=== PATIENT | male | born 1965 | race Caucasian/White ===

== ENCOUNTER 2023-08-31 07:41 | Outpatient (CLI) | payer OTHER, SELFPAY ==
[2023-08-31 18:56] LABS: Hematocrit 48.4 % (42.0-52.0); Hemoglobin 15.3 g/dL (14.0-18.0); Mean Corpuscular HGB Conc 31.6 g/dl (32-36); Mean Corpuscular Hemoglobin 27.2 pg (26-34); Mean Corpuscular Volume 86.1 fl (80-100); Mean Platelet Volume 12.7 fl (7.4-10.4); Platelet Count Result 168 k/mm3 (150-375); Red Blood Count 5.62 M/mm3 (4.6-6.20); Red Cell Distribution Width 13.2 % (11.5-14.5); White Blood Count 6.5 K/mm3 (4.5-10.0)
[2023-08-31 19:25] LABS: Vitamin D 25 Hydroxy 34.3 ng/mL
[2023-08-31 20:06] LABS: Alanine Aminotransferase 18 U/L (6-50); Albumin Level 4.4 g/dL (3.5-5.1); Alkaline Phosphatase 71 U/L (38-126); Anion Gap 7 mmol/L (4-12); Aspartate Amino Transferase 40 U/L (17-59); Bilirubin,Total 0.7 mg/dL (0.2-1.3); Blood Urea Nitrogen 14 mg/dL (9-20); Carbon Dioxide 27 mmol/L (22-30); Chloride 107 mmol/L (98-107); Cholesterol 210 mg/dL (0-200); Estimated Glomerular Filt Rate 57; Glucose 97 mg/dL (65-110); HDL Direct 48 mg/dL; Potassium 4.4 mmol/L (3.4-5.0); Sodium 141 mmol/L (137-145); Triglycerides 124 mg/dL (<150)
[2023-08-31 20:20] LABS: LDL Cholesterol Direct 134 mg/dL
[2023-08-31 20:36] LABS: Prostate Specific Antigen 1.4 ng/mL (< OR = 4.0)
== END 2023-08-31 07:42 | disposition home or self-care (01) ==
PROVIDERS: PCP Nurse Practitioner Adult Health; Visit Provider Nurse Practitioner Adult Health
DX: Z13.9 Encounter for screening, unspecified (principal); Z12.5 Encounter for screening for malignant neoplasm of prostate; R79.89 Other specified abnormal findings of blood chemistry; E53.8 Deficiency of other specified B group vitamins
CPT/HCPCS: 36415; 80053; 80061; 82306; 82607; 84153; 84443; 85027; G0103

== ENCOUNTER 2024-08-29 09:22 | Outpatient (CLI) | payer OTHER, SELFPAY ==
[2024-08-29 20:17] LABS: Hematocrit 47.8 % (42.0-52.0); Hemoglobin 15.1 g/dL (14.0-18.0); Mean Corpuscular HGB Conc 31.6 g/dl (32-36); Mean Corpuscular Hemoglobin 27.5 pg (26-34); Mean Corpuscular Volume 87.1 fl (80-100); Mean Platelet Volume 12.3 fl (7.4-10.4); Platelet Count Result 184 k/mm3 (150-375); Red Blood Count 5.49 M/mm3 (4.6-6.20); Red Cell Distribution Width 13.4 % (11.5-14.5); White Blood Count 7.3 K/mm3 (4.5-10.0)
[2024-08-29 20:26] LABS: Alanine Aminotransferase 22 U/L (6-50); Albumin Level 4.2 g/dL (3.5-5.1); Alkaline Phosphatase 64 U/L (38-126); Anion Gap 8 mmol/L (4-12); Aspartate Amino Transferase 55 U/L (17-59); Bilirubin,Total 0.6 mg/dL (0.2-1.3); Blood Urea Nitrogen 15 mg/dL (9-20); Calcium 9.3 mg/dL (8.4-10.2); Carbon Dioxide 24 mmol/L (22-30); Chloride 107 mmol/L (98-107); Cholesterol 225 mg/dL (0-200); Estimated Glomerular Filt Rate 58; Glucose 101 mg/dL (65-110); HDL Direct 45 mg/dL; Potassium 4.3 mmol/L (3.4-5.0); Sodium 139 mmol/L (137-145); Total Protein 7.2 g/dL (6.3-8.2); Triglycerides 99 mg/dL (<150)
[2024-08-29 20:39] LABS: LDL Cholesterol Direct 134 mg/dL
[2024-08-29 20:57] LABS: Prostate Specific Antigen 1.3 ng/mL (< OR = 4.0)
[2024-08-29 21:01] LABS: Vitamin D 25 Hydroxy 30.7 ng/mL
== END 2024-08-29 09:23 | disposition home or self-care (01) ==
LOC: ANHBWCLAB 09:24
PROVIDERS: PCP Nurse Practitioner Adult Health; Visit Provider Nurse Practitioner Adult Health
DX: Z00.00 Encounter for general adult medical examination without abnormal findings (principal); E53.8 Deficiency of other specified B group vitamins; Z12.5 Encounter for screening for malignant neoplasm of prostate; R79.89 Other specified abnormal findings of blood chemistry
CPT/HCPCS: 36415; 80053; 80061; 82306; 82607; 84153; 84443; 85027; G0103

== ENCOUNTER 2024-09-19 02:28 | Day surgery (SDC) | payer OTHER, SELFPAY ==
[2024-08-30 13:14] VITALS: BMI 27.8
--- OUTSIDE RECORDS SUMMARY | 2024-09-19 02:31 | XMS_ITS | Clinical Summary ---
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 Surgical History Surgery Date Site/Laterality Comments WISDOM TOOTH EXTRACTION 03/09/1986 - 03/08/1987 Medical History Medical History Date Comments Known health problems: none Family History Medical History Relation Name Comments Arthritis Neg Hx Cancer Neg Hx Stroke Neg Hx Social History Tobacco Use Types Packs/Day Years Used Date Smoking Tobacco: Never Smokeless Tobacco: Never Personal Safety Answer Date Recorded Getting School Help Needed Not on file 05/22 Sex and Gender Information Value Date Recorded Sex Assigned at Not on file Legal 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 Gender Identity Not on file Sexual Orientation Not on file Obstetrics History Last Filed Vital Signs Vital Sign Reading Time Taken Comments Blood Pressure 131/88 02/17/2018 7:25 AM VOICE INSTRUCTOR Pulse 70 02/17/2018 7:25 AM VOICE INSTRUCTOR Temperature - - Respiratory Rate - - Oxygen Saturation - - Inhaled Oxygen Concentration - - Weight 94.3 kg (208 lb) 02/17/2018 7:25 AM VOICE INSTRUCTOR Height 182.9 cm (6') 02/17/2018 7:25 AM VOICE INSTRUCTOR Body Mass Index 28.21 02/17/2018 7:25 AM VOICE INSTRUCTOR Plan of Treatment Not on file Insurance [facility] [employer]AK[employer] [id number] [facility] CHOICE PLUS [facility] HMO/PPO Address: [place] [address] [facility] [employer] [id number] Care Teams Plastics And Composites Inspector Relationship Specialty Start Date End Date No, Physician PCP - General 02/12/18
--- OUTSIDE RECORDS SUMMARY | 2024-09-19 02:31 | XMS_ITS | Clinical Summary ---
Author Organization [facility] Address [address] [facility] [place] [address] Phone Care Team Providers Care Clinical Staff Pharmacist Name Role Phone Provider, None Primary Care Provider Julito Hadley DPM Unavailable [phone] Allergies Active Allergy Reactions Criticality Noted Date Comments Other-Environmental Allergen (Not Found In Search) Unknown 10/17/2022 Downy dryer sheets Medications No known medications Active Problems Problem Noted Date Diagnosed Date Contusion of left foot 07/17/2015 Pain in left foot 07/17/2015 Neuritis of foot 07/17/2015 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/17/2015 Social History Tobacco Use Types Packs/Day Years Used Date Smoking Tobacco: Never Smokeless Tobacco: Never Tobacco Cessation:Counseling Given: Not Answered Alcohol Use Standard Drinks/Week Comments Yes 1 (1 standard drink = 0.6 oz pur e alcohol) socially Sex and Gender Information Value Date Recorded Sex Assigned at Not on file Legal Sex Male 12:40 AM CDT Gender Identity Not on file Sexual Orientation Not on file Last Filed Vital Signs Vital Sign Reading Time Taken Comments Blood Pressure 108/74 11/03/2022 11:15 AM CDT Pulse 84 11/03/2022 11:15 AM CDT Temperature 36.5 C (97.7 F) 11/03/2022 11:15 AM CDT Respiratory Rate 18 11/03/2022 11:15 AM CDT Oxygen Saturation 98% 11/03/2022 11:15 AM CDT Inhaled Oxygen Concentration - - Weight 86.2 kg (190 lb) 11/03/2022 11:15 AM CDT Height 182.9 cm (6') 07/31/2015 2:45 PM CDT Body Mass Index 25.77 07/31/2015 2:45 PM CDT Plan of Treatment Health Maintenance Due Date Last Done Comments Hepatitis C Virus (HCV) Screening 1965 TdaP Immunization 1965 Hepatitis B Immunization (1 of 3 - 19+ 3-dose series) 1986 Cologuard 2012 Colonoscopy 2012 Colorectal Cancer Screening 2012 Immunochemical Fecal Occult Blood 2012 Pneumococcal Immunization (5 0+ years) (1 of 1 - PCV) 2017 Zoster Immunization (1 of 2) 2017 PSA Discussion 2022 SARS-COV-2 Immunization (3 - 2023- season) 2023 12/24/2020, 12/03/2020 Influenza Immunization (#1) 2024 Respiratory Syncytial Virus (RSV) Immunization (Adult) (1 - 1-dose 75+ series) 2042 Human Papillomavirus (HPV) Immunization Aged Out No longer eligible b ased on patient's age to complete this topic Meningococcal Immunization (ACWY) Aged Out No longer eligible b ased on patient's age to complete this topic Rotavirus Immunization Aged Out No lo nger eligible based on patient's age to complete this topic Insurance [facility] Care Teams Clinical Staff Pharmacist Relationship Specialty Start Date End Date Provider, None [place] PCP - General 07/17/15 Julito Burrell DPM [place] Podiatry 07/17/15
--- OUTSIDE RECORDS SUMMARY | 2024-09-19 02:31 | XMS_ITS | Referral Summary ---
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 Social History Tobacco Use Types Packs/Day Years Used Date Smoking Tobacco: Never Smokeless Tobacco: Never Personal Safety Answer Date Recorded Getting School Help Needed Not on file 05/22 Sex and Gender Information Value Date Recorded Sex Assigned at Not on file Legal 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 Gender Identity Not on file Sexual Orientation Not on file Last Filed Vital Signs Vital Sign Reading Time Taken Comments Blood Pressure 131/88 02/17/2018 7:25 AM MANAGER EMPLOYMENT Pulse 70 02/17/2018 7:25 AM MANAGER EMPLOYMENT Temperature - - Respiratory Rate - - Oxygen Saturation - - Inhaled Oxygen Concentration - - Weight 94.3 kg (208 lb) 02/17/2018 7:25 AM MANAGER EMPLOYMENT Height 182.9 cm (6') 02/17/2018 7:25 AM MANAGER EMPLOYMENT Body Mass Index 28.21 02/17/2018 7:25 AM MANAGER EMPLOYMENT Plan of [place] [id number] [facility] CHOICE PLUS Care Teams Combination Presser Relationship Specialty Start Date End Date No, Physician PCP - General 02/12/18
[2024-09-19 08:49] VITALS: BP 137/82; PULSE 93; RESP 20; TEMP 36.8; O2SAT 100
--- NOTE | 2024-09-19 09:00 | P.PNAN_ITS ---
Anes - Initial Pre Proc Eval Procedure: Operation Date: 09/19/24 10:30 Proposed Procedures p Esophagogastroduodenoscopy - Abbe Booth MD Date/Time: 09/19/24 09:00 Surgeon: Abbe Booth MD Pre Op Diagnosis: Dysphagia, unspecified Patient Data Age: 59 Gender: M Height: 1.83 m Weight: 93.2 kg Last Vital Signs Temp 36.8 C 09/19/24 08:49 Pulse 93 09/19/24 08:49 Resp 20 09/19/24 08:49 BP 137/82 09/19/24 08:49 Pulse Ox 100 09/19/24 08:49 O2 Del Method Room Air 09/19/24 08:49 Allergies Allergy/AdvReac Type Severity Reaction Status Date / Time No Known Allergies Allergy Mild Verified 09/19/24 08:48 Home Medications ?Medication ?Instructions ?Recorded ?Confirmed ?Type multivitamin (Daily Multi-Vitamin 1 tablet PO DAILY 08/24/23 09/19/24 History tablet) Patient hx anesthesia problems: none Family hx anesthesia problems: none Results Review: All pre-operative results and documents have been reviewed as part of the pre- operative evaluation. [facility] Past Medical History Medical History (Updated 08/22/24 @ 08:23 by Jodie Mulligan APRN) Allergies Surgical History Surgical History Hx of LASIK Family History Family History (Updated 08/24/23 @ 13:54 by Mandy Swanson MA) Mother Cerebrovascular accident Hx of blood clots Grandparent Cancer Social History Social History (Updated 08/24/23 @ 14:00 by Mandy Swanson MA) Smoking status: Never smoker Alcohol intake: current Substance use: never Lack of Transportation: No Lack of Food: Never True Current Housing: I Have Housing Concerned About Future Housing: No Difficulty Paying Gas/Electric Bills: No Difficulty Paying for Meds: No Currently Unemployed: No Education: Bachelor's Degree Difficulty w/ Childcare or Family Care: No Living arrangements: with family Occupation/Education: occupation 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 Informed Consent: The patient's anesthetic plan and its attendant risks and benefits were discussed with the patient/family/POA. Questions were solicited and answers provided to the satisfaction of the patient/family/POA.
[2024-09-19] MEDS: LACTATED RINGERS 1,000 ML 150 ML IV CONT (09:07)
--- NOTE | 2024-09-19 09:25 | P.HP_ITS ---
History of Present Illness History of Present Illness Consent: Risks, benefits, and alternatives have been discussed and questions answered. Patient agrees to proceed with procedure. Chief complaint: Dysphagia, unspecified Narrative: Mustapha Ware is a 59 year old male with dysphagia to solids, never had egd Review of Systems Review of Systems: All systems reviewed & are unremarkable except as noted in HPI and below PMFSH Past Medical History Medical History (Updated 08/22/24 @ 08:23 by Jodie Mulligan APRN) Allergies Surgical History Surgical History Hx of LASIK Family History Family History (Updated 08/24/23 @ 13:54 by Mandy Swanson MA) Mother Cerebrovascular accident Hx of blood clots Grandparent Cancer Social History Social History (Updated 08/24/23 @ 14:00 by Mandy Swanson MA) Smoking status: Never smoker Alcohol intake: current Substance use: never Lack of Transportation: No Lack of Food: Never True Current Housing: I Have Housing Concerned About Future Housing: No Difficulty Paying Gas/Electric Bills: No Difficulty Paying for Meds: No Currently Unemployed: No Education: Bachelor's Degree Difficulty w/ Childcare or Family Care: No Living arrangements: with family Occupation/Education: occupation 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 care concerns: No Agree to blood products: Yes Meds Home Medications and Allergies Home Medications ?Medication ?Instructions ?Recorded ?Confirmed ?Type multivitamin (Daily Multi-Vitamin 1 tablet PO DAILY 08/24/23 09/19/24 History tablet) Allergies Allergy/AdvReac Type Severity Reaction Status Date / Time No Known Allergies Allergy Mild Verified 09/19/24 08:48 Vital Signs Vital Signs - 24 hr 09/19/24 08:49 Temperature 98.2 F Pulse Rate 93 Respiratory Rate 20 Blood Pressure 137/82 Pulse Oximetry 100 Oxygen Delivery Room Air Exam Const: General: comfortable and no acute distress HENMT: Face/Nose/Sinus: Normal nares present Eyes: General: appearance normal, both eyes and all related structures Neck: Neck: no JVD Resp: Auscultation: clear to auscultation bilaterally Cardio: Rate: regular rate Rhythm: regular rhythm GI: Inspection: non-distended GI Palp: Yes Soft to palpation Skin: General skin exam: normal color Neuro: Speech: normal speech Extrem: General: normal to inspection Psych: Mental Status: mental status grossly normal Assessment and Plan Assessment and plan (1) Dysphagia: Code(s): R13.10 - Dysphagia, unspecified Status: Acute Assessment and Plan: egd with bx
--- NOTE | 2024-09-19 09:41 | S_PTH ---
PATIENT: Mustapha Ware LOC: [facility]#:[id number] AGE/SX: 59/M ROOM: RE09/19/[address]: Abbe Booth MD : [id number] BED: DIS: 09/19/2024 SPEC #: [id number] RECD: 09/19/24 10:38 STATUS: JOVITA REQ #: [id number] [place]: 09/19/24 09:[address]: Abbe Booth DEPT: [facility] Surgical RECD BY: Yan Rahman ENTERED: 09/19/24 10:39 SP TYPE: Surgical OTHR DR: Jodie Mulligan APRN Tissues: A - Esophageal Biopsy B - Esophageal Biopsy C - Gastric Biopsy Procedures: Hematoxylin and Eosin Stain Gross and Microscopic Level 4
[2024-09-19 09:45] VITALS: BP 114/75; PULSE 74; RESP 16; O2SAT 97
[2024-09-19 09:55] VITALS: BP 108/76; PULSE 69; RESP 20; O2SAT 97
[2024-09-19 10:05] VITALS: BP 120/76; PULSE 72; RESP 15; O2SAT 97
== END 2024-09-19 10:17 | disposition home or self-care (01) ==
PROVIDERS: PCP Nurse Practitioner Adult Health; Referring Provider Nurse Practitioner Adult Health; Visit Provider Internal Medicine Gastroenterology
PROC: 0DJ08ZZ Inspection of Upper Intestinal Tract, Via Natural or Artificial Opening Endoscopic (ICD-10-PCS; CPT 43239; principal; 2024-09-19 10:30)
DX: K22.2 Esophageal obstruction (principal); K20.0 Eosinophilic esophagitis
CPT/HCPCS: 43239; 43249; 88305; C1726; J2003; J2704; J7120